=== PATIENT | male | born 1955 | race Two or more races ===

== ENCOUNTER 2022-08-19 11:06 | Inpatient (IN) | payer MEDICARE, MEDICAID ==
[2022-08-19] VITALS (26 sets, daily range): BP systolic 76–104; BP diastolic 38–74
[~2022-08-19] VITALS: Ht 177.8 cm; Wt 96.6 kg
[2022-08-19] MEDS ORDERED: ETOMIDATE (2MG/ML) 20ML VIAL IV ONE ×2 (11:19→11:30)
[2022-08-19] MEDS ORDERED: ROCURONIUM 10MG/ML 10ML VIAL IV ONE ×3 (11:19→14:00)
[2022-08-19] MEDS ORDERED: SUCCINYLCHOLINE CHLORIDE 20 MG/ML 10ML VIAL IV ONE ×2 (11:19→11:30)
[2022-08-19] MEDS: MIDAZOLAM DRIP 50 mg/50mL 50 ML IV SCH ×3 (11:26→19:57)
[2022-08-19] MEDS ORDERED: MIDAZOLAM DRIP 50 mg/50mL 50 ML IV ONE (11:26)
[2022-08-19] MEDS ORDERED: ACETAMINOPHEN 650 MG RECT SUPP PR ONE (11:30)
[2022-08-19 11:45] LABS: Basophils # (auto) 0 10 ^3/uL (0-0.2); Basophils % (auto) 0.1 % (0.0-2.0); Eosinophils # (auto) 0 10 ^3/uL (0-0.8); Eosinophils % (auto) 0.1 % (0.0-7.0); Hematocrit 44.5 % (41.0-53.0); Hemoglobin 14.7 g/dL (13.5-17.5); Lymphocytes # (auto) 1.3 10 ^3/uL (0.4-5.4); Lymphocytes % (auto) 14.3 % (10.0-50.0); Mean Corpuscular Hemoglobin 30.9 pg (28.0-32.0); Mean Corpuscular Hgb Conc. 33.1 g/dL (32.0-36.0); Mean Corpuscular Volume 93.3 fL (80.0-100.0); Monocytes # (auto) 0.6 10 ^3/uL (0-1.3); Monocytes % (auto) 6.9 % (0.0-12.0); Neutrophils # (auto) 7.2 10 ^3/uL (1.6-8.6); Neutrophils % (auto) 78.6 % (37.0-80.0); Red Blood Cells 4.77 10^6/uL (4.5-5.90); Red Cell Distribution Width 14.5 % (11.8-14.3); White Blood Cell 9.1 10^3/uL (4.4-10.8)
[2022-08-19] MEDS ORDERED: IBUPROFEN 100MG/5ML ORAL SUSP 100 MG/5 ML UD GT ONE (11:45)
[2022-08-19 11:52] LABS: Band Neutrophils % (manual) 0; Basophils % (manual) 0 (0.0-2.0); Blast Cells 0; Eosinophils % (manual) 0 (0-7); Metamyelocytes % 0; Myelocytes % 0; Promyelocytes % 0; Reactive Lymphocytes 0
[2022-08-19 12:04] LABS: Lymphocytes % (manual) 16 (10.0-50.0); Monocytes % (manual) 7 (0-12)
[2022-08-19 12:18] LABS: Chloride 114 mmol/L (98-107); Nucleated Red Blood Cells % 0.4 %; Sodium 138 mmol/L (136-145)
[2022-08-19 12:36] LABS: Alanine Aminotransferase 38 U/L (16-61); Albumin 3.7 g/dL (3.4-5.0); Alkaline Phosphatase 60 U/L (45-117); Anion Gap 10 (5-15); Aspartate Aminotransferase 59 U/L (15-37); BUN/Creatinine Ratio 11.2 (10.0-20.0); Bilirubin, Total 0.9 mg/dL (0.2-1.0); Blood Alcohol < 3.0 mg/dL (0-5); Blood Urea Nitrogen 20 mg/dL (7-18); Calcium 8.9 mg/dL (8.5-10.1); Carbon Dioxide 14 mmol/L (21-32); Creatine Kinase IFCC 1600 U/L (39-308); GFR African American 49 mL/min; GFR Non-African American 41 mL/min; Glucose 68 mg/dL (74-106); Total Protein 7.3 g/dL (6.4-8.2)
[2022-08-19 13:08] LABS: Acetaminophen < 2.0 ug/mL (10-30)
[2022-08-19 13:10] LABS: Salicylate 1.8 mg/dL (2.8-20.0)
[2022-08-19 13:11] LABS: Urine Bacteria FEW /hpf (None Seen); Urine Blood 3+ /uL (Negative); Urine Hyaline Cast FEW /lpf (0 - 2); Urine Mucus FEW (None Seen); Urine WBC 6 /hpf (0 - 3)
[2022-08-19 13:23] LABS: Potassium 5.7 mmol/L (3.5-5.1)
[2022-08-19 13:27] LABS: Amphetamine Screen, Urine POSITIVE (NEGATIVE); Barbiturate Scree,Urine NEGATIVE (NEGATIVE); Benzodiazephine Screen, Urine POSITIVE (NEGATIVE); Cannabinoid Screen, Urine POSITIVE (NEGATIVE); Cocaine Screen, Urine NEGATIVE (NEGATIVE)
[2022-08-19 13:36] LABS: Opiate Scree,Urine NEGATIVE (NEGATIVE); Phencyclidine Screen, Urine NEGATIVE (NEGATIVE)
[2022-08-19] MEDS: fentaNYL Drip 2500mCg/250mlNS 250 ML IV SCH (13:53)
[2022-08-19] MEDS ORDERED: SODIUM BICARBONATE 8.4 % INJ 50ML VIAL IV ONE ×3 (14:15→19:03)
[2022-08-19] MEDS ORDERED: DEXTROSE (50%) 50ML SYRG IV ONE ×2 (14:15→15:45)
[2022-08-19] MEDS ORDERED: DEXTROSE 10% 250 ML Bag IV PRN ×2 (14:30)
[2022-08-19] MEDS ORDERED: ALBUTEROL SULF 2.5 MG/0.5ML(0.5%) NEB SOLN NEB ONE (15:45)
[2022-08-19] MEDS ORDERED: CALCIUM GLUC 1,000mg/50ml-NS 50 ML IV ONE (15:45)
[2022-08-19] MEDS ORDERED: InsuLIN REG 1unit/0.01ml Soln (100units/ml) IV ONE (15:45)
[2022-08-19] MEDS ORDERED: SODIUM BICARBONATE 8.4% INJ 50ML SYRINGE IV ONE (15:45)
[2022-08-19] MEDS ORDERED: MORPHINE SULFATE INJ 2 MG/ml SYRG IV PRN (15:45)
[2022-08-19] MEDS ORDERED: NITROGLYCERIN 0.4 MG SL TAB SL PRN (15:45)
[2022-08-19] MEDS ORDERED: FUROSEMIDE 20 MG/2 ML VIAL IV ONE (15:45)
[2022-08-19] MEDS ORDERED: VANCOMYCIN PER PHARMACY 0 MG IV SCH (16:00)
[2022-08-19] MEDS ORDERED: SODIUM CHLORIDE 0.9% 1,000 ML IV ONE (16:00)
[2022-08-19] MEDS ORDERED: PANTOPRAZOLE 40 MG/10 ML VIAL INJ IV ONE (16:00)
[2022-08-19] MEDS ORDERED: VANCOMYCIN 1GM/250ML 250 ML IV ONE (16:00)
[2022-08-19 16:20] LABS: Cholesterol 116 mg/dL (< 200); Triglycerides 53 mg/dL (< 150)
[2022-08-19 16:22] LABS: HDL Cholesterol 50 mg/dL (40-59); LDL Cholesterol 57 mg/dL (< 100); Lactic Acid w/Reflex 3.6 mmol/L (0.4-2.0)
[2022-08-19] MEDS: SODIUM CHLORIDE 0.9% 1,000 ML IV SCH (16:52)
[2022-08-19] MEDS ORDERED: MULTIPLE VITAMIN TAB PO ONE (17:15)
[2022-08-19] MEDS ORDERED: FOLIC ACID 1 MG in D5W 5% 50 ML INJ SCH (17:15)
[2022-08-19] MEDS ORDERED: THIAMINE 100mg/ml INJ (200mg/2ml VIAL) IV ONE (17:15)
[2022-08-19] MEDS ORDERED: LORazepam 2MG/ML-1ML VIAL IV PRN (17:15)
[2022-08-19] MEDS: NOREPINEPHRINE 8 MG/250ML KIT 250 ML IV SCH (17:22)
[2022-08-19] MEDS ORDERED: FOLIC ACID 1 MG in D5W 5% 50 ML INJ ONE (17:30)
[2022-08-19] MEDS: IPRATROPIUM BROM 0.5 MG/2.5ML INH SOL NEB SCH (18:00)
[2022-08-19] MEDS: ALBUTEROL SULF 2.5 MG/0.5ML(0.5%) NEB SOLN NEB SCH (18:00)
[2022-08-19] MEDS ORDERED: SODIUM BICARBONATE 8.4% INJ 50ML SYRINGE ONE (19:01)
[2022-08-19] MEDS ORDERED: SODIUM CHLORIDE 0.9% 2,000 ML IV ONE (19:45)
[2022-08-19] MEDS ORDERED: THIAMINE 100mg/ml INJ (200mg/2ml VIAL) ONE (19:59)
[2022-08-19] MEDS: VANCOMYCIN 1GM/250ML 250 ML IV SCH (20:04)
[2022-08-19 20:34] LABS: Creatinine, Urine 236 mg/dL (30.0-125.0); Sodium Urine 43 mmol/L (40-220)
[2022-08-19] MEDS ORDERED: ALBUMIN 25% 100 ML IV ONE (21:15)
[2022-08-19] MEDS: SODIUM BICARBONATE 50ML VIAL 150 ML in D5W 5% 1,000 ML IV SCH (21:15)
[2022-08-19] MEDS ORDERED: POTASSIUM CHL 20MEQ/100ML 100 ML IV ONE (21:15)
[2022-08-19] MEDS: PHENYLEPHRINE IV 250 ML IV SCH (21:15)
[2022-08-19] MEDS ORDERED: FUROSEMIDE 100 MG/10ML VIAL IV ONE (21:45)
[2022-08-19] MEDS: CEFEPIME 1GM/ 50ML 50 ML IV SCH (22:00)
[2022-08-20] VITALS (105 sets, daily range): BP systolic 79–112; BP diastolic 47–72
[2022-08-20] MEDS: IPRATROPIUM BROM 0.5 MG/2.5ML INH SOL NEB SCH ×4 (00:18→18:42)
[2022-08-20] MEDS: ALBUTEROL SULF 2.5 MG/0.5ML(0.5%) NEB SOLN NEB SCH ×4 (00:18→18:41)
[2022-08-20] MEDS: MIDAZOLAM DRIP 50 mg/50mL 50 ML IV SCH ×5 (00:39→22:29)
[2022-08-20] MEDS: NOREPINEPHRINE 8 MG/250ML KIT 250 ML IV SCH ×2 (00:40→21:40)
[2022-08-20] MEDS: SODIUM CHLORIDE 0.9% 1,000 ML IV SCH ×3 (01:45→21:13)
[2022-08-20] MEDS: SODIUM BICARBONATE 50ML VIAL 150 ML in D5W 5% 1,000 ML IV SCH ×3 (03:25→09:41)
[2022-08-20] MEDS: PHENYLEPHRINE IV 250 ML IV SCH ×3 (04:08→22:38)
[2022-08-20 05:29] LABS: BUN/Creatinine Ratio 13.5 (10.0-20.0)
[2022-08-20 05:31] LABS: Bilirubin, Total 2.4 mg/dL (0.2-1.0); Total Protein 5.7 g/dL (6.4-8.2)
[2022-08-20 06:26] LABS: Basophils # (auto) 0 10 ^3/uL (0-0.2); Eosinophils # (auto) 0 10 ^3/uL (0-0.8); Nucleated Red Blood Cells % 0.9 %; Red Cell Distribution Width 15.3 % (11.8-14.3)
[2022-08-20 06:27] LABS: Basophils % (auto) 0.1 % (0.0-2.0); Hematocrit 41.8 % (41.0-53.0); Hemoglobin 13.7 g/dL (13.5-17.5); Lymphocytes # (auto) 1.9 10 ^3/uL (0.4-5.4); Lymphocytes % (auto) 12.7 % (10.0-50.0); Mean Corpuscular Hemoglobin 31.6 pg (28.0-32.0); Mean Corpuscular Hgb Conc. 32.8 g/dL (32.0-36.0); Mean Corpuscular Volume 96.2 fL (80.0-100.0); Monocytes # (auto) 0.8 10 ^3/uL (0-1.3); Monocytes % (auto) 5.4 % (0.0-12.0); Neutrophils % (auto) 81.8 % (37.0-80.0); Red Blood Cells 4.34 10^6/uL (4.5-5.90); White Blood Cell 14.6 10^3/uL (4.4-10.8)
[2022-08-20] MEDS: PANTOPRAZOLE 40 MG/10 ML VIAL INJ IV SCH (09:39)
[2022-08-20] MEDS: ENOXAPARIN SOD 40 MG/0.4 ML SYRINGE SC SCH (09:39)
[2022-08-20] MEDS: FOLIC ACID 1 MG, MULTIPLE VITAMIN 10 ML, THIAMINE INJ 100 MG in D5W 5% 1,000 ML INJ SCH (09:42)
[2022-08-20] MEDS: CEFEPIME 1GM/ 50ML 50 ML IV SCH ×2 (09:42→22:05)
[2022-08-20] MEDS ORDERED: MULTIPLE VITAMIN TAB PO SCH (10:00)
[2022-08-20] MEDS ORDERED: THIAMINE 100mg/ml INJ (200mg/2ml VIAL) IV SCH (10:00)
[2022-08-20] MEDS: fentaNYL Drip 2500mCg/250mlNS 250 ML IV SCH (15:11)
[2022-08-20 15:28] LABS: INR 5.21 (0.9-1.15); Partial Thromboplastin Time 104.1 sec (24.6-33.4)
[2022-08-20] MEDS: POTASSIUM CHL 20MEQ/100ML 100 ML IV SCH ×2 (15:33→18:37)
[2022-08-20] MEDS ORDERED: PROPOFOL 100 ML IV ONE (16:18)
[2022-08-20] MEDS: PROPOFOL 100 ML IV SCH ×2 (16:43→23:41)
[2022-08-20 17:18] LABS: BUN/Creatinine Ratio 11.2 (10.0-20.0); Calcium 6.3 mg/dL (8.5-10.1)
[2022-08-20 17:28] LABS: Potassium 2.9 mmol/L (3.5-5.1)
[2022-08-20] MEDS: VANCOMYCIN 1GM/250ML 250 ML IV SCH (18:38)
[2022-08-21] VITALS (65 sets, daily range): BP systolic 57–95; BP diastolic 35–56
[2022-08-21] MEDS: ALBUTEROL SULF 2.5 MG/0.5ML(0.5%) NEB SOLN NEB SCH ×3 (00:32→11:53)
[2022-08-21] MEDS: IPRATROPIUM BROM 0.5 MG/2.5ML INH SOL NEB SCH ×3 (00:32→11:53)
[2022-08-21] MEDS ORDERED: ALBUMIN 5% 500 ML IV ONE (01:00)
[2022-08-21] MEDS: PHENYLEPHRINE IV 250 ML IV SCH ×3 (01:05→05:15)
[2022-08-21] MEDS: MIDAZOLAM DRIP 50 mg/50mL 50 ML IV SCH (01:34)
[2022-08-21] MEDS: NOREPINEPHRINE 8 MG/250ML KIT 250 ML IV SCH ×2 (01:40→06:24)
[2022-08-21] MEDS: SODIUM CHLORIDE 0.9% 1,000 ML IV SCH ×3 (02:46→14:46)
[2022-08-21] MEDS ORDERED: NOREPINEPHRINE BITARTRATE 32 MG in SODIUM CHL 0.9% 218 ML IV SCH (07:30)
[2022-08-21] MEDS: PHENYLEPHRINE INJ 80 MG in SODIUM CHL 0.9% 242 ML IV SCH ×2 (07:30→15:56)
[2022-08-21] MEDS ORDERED: VASOPRESSIN 20 UNIT/ML ONE (07:56)
[2022-08-21] MEDS: VASOPRESSIN 20 UNITS in SODIUM CHL 0.9% 99 ML IV SCH ×2 (08:16→15:57)
[2022-08-21] MEDS ORDERED: SODIUM BICARBONATE 8.4 % INJ 50ML VIAL IV ONE ×2 (08:24→08:30)
[2022-08-21] MEDS ORDERED: SODIUM BICARBONATE 50ML VIAL 150 ML in D5W 5% 1,000 ML IV SCH (08:30)
[2022-08-21 09:35] LABS: Basophils # (auto) 0 10 ^3/uL (0-0.2); Eosinophils # (auto) 0 10 ^3/uL (0-0.8); Lymphocytes # (auto) 0.7 10 ^3/uL (0.4-5.4); Monocytes # (auto) 0.1 10 ^3/uL (0-1.3); Neutrophils % (auto) 94.3 % (37.0-80.0); White Blood Cell 14.4 10^3/uL (4.4-10.8)
[2022-08-21 09:36] LABS: Basophils % (auto) 0.2 % (0.0-2.0); Hematocrit 35.6 % (41.0-53.0); Hemoglobin 11.5 g/dL (13.5-17.5); Lymphocytes % (auto) 4.8 % (10.0-50.0); Mean Corpuscular Hgb Conc. 32.3 g/dL (32.0-36.0); Mean Corpuscular Volume 95.9 fL (80.0-100.0); Monocytes % (auto) 0.7 % (0.0-12.0); Neutrophils # (auto) 13.5 10 ^3/uL (1.6-8.6); Nucleated Red Blood Cells % 0.8 %; Red Blood Cells 3.72 10^6/uL (4.5-5.90); Red Cell Distribution Width 15.8 % (11.8-14.3)
[2022-08-21 09:38] LABS: BUN/Creatinine Ratio 8.4 (10.0-20.0)
[2022-08-21] MEDS ORDERED: DEXTROSE 10% 250 ML IV ONE ×2 (09:41→09:46)
[2022-08-21 09:42] LABS: Potassium 5.6 mmol/L (3.5-5.1)
[2022-08-21] MEDS ORDERED: EPINEPHrine HCL 250 ML IV ONE (09:55)
[2022-08-21] MEDS ORDERED: DOPamine 1600MCG/ML D5W 250 ML IV SCH (10:00)
[2022-08-21] MEDS ORDERED: EPINEPHrine HCL 250 ML IV SCH (10:00)
[2022-08-21] MEDS: PANTOPRAZOLE 40 MG/10 ML VIAL INJ IV SCH (10:00)
[2022-08-21] MEDS: ENOXAPARIN SOD 40 MG/0.4 ML SYRINGE SC SCH (10:00)
[2022-08-21 10:44] LABS: Calcium 5.7 mg/dL (8.5-10.1)
[2022-08-21] MEDS: fentaNYL Drip 2500mCg/250mlNS 250 ML IV SCH (13:45)
[2022-08-21] MEDS: FOLIC ACID 1 MG, MULTIPLE VITAMIN 10 ML, THIAMINE INJ 100 MG in D5W 5% 1,000 ML INJ SCH (14:45)
[2022-08-21] MEDS ORDERED: EPINEPHrine HCL 1 MG/10 ML SYRG IV ONE (20:13)
[2022-08-21] MEDS ORDERED: SODIUM BICARBONATE 8.4% INJ 50ML SYRINGE IV ONE (20:13)
[2022-08-21] MEDS ORDERED: ATROPINE SULF 1 MG/10ml SYR IM ONE (20:13)
[2022-08-21] MEDS ORDERED: CEFEPIME 1GM/ 50ML 50 ML IV SCH (22:00)
[2022-08-22] MEDS ORDERED: ENOXAPARIN SOD 30 MG/0.3 ML SYRINGE SC SCH (10:00)
== END 2022-08-22 00:40 | DRG 720 ==
LOC: EDBD 11:06 → ER 11:06 → TELE 15:46 → ICU WEST 17:26
PROVIDERS: ADMIT Nurse Practitioner Family; ATTEND Internal Medicine Pulmonary Disease
PROC: 5A1945Z Respiratory Ventilation, 24-96 Consecutive Hours (ICD-10-PCS; 2022-08-19)
PROC: 0BH17EZ Insertion of Endotracheal Airway into Trachea, Via Natural or Artificial Opening (ICD-10-PCS; 2022-08-19)
PROC: 4A00X4Z Measurement of Central Nervous Electrical Activity, External Approach (ICD-10-PCS; principal; 2022-08-20)
DX: A41.9 Sepsis, unspecified organism (principal); J96.01 Acute respiratory failure with hypoxia; N17.0 Acute kidney failure with tubular necrosis; R65.21 Severe sepsis with septic shock; G93.41 Metabolic encephalopathy; J18.9 Pneumonia, unspecified organism; I12.0 Hypertensive chronic kidney disease with stage 5 chronic kidney disease or end stage renal disease; D69.6 Thrombocytopenia, unspecified; K76.82 Hepatic encephalopathy; G93.1 Anoxic brain damage, not elsewhere classified; J44.0 Chronic obstructive pulmonary disease with (acute) lower respiratory infection; M62.82 Rhabdomyolysis; N18.6 End stage renal disease; E11.22 Type 2 diabetes mellitus with diabetic chronic kidney disease; E66.9 Obesity, unspecified; E07.9 Disorder of thyroid, unspecified; E78.5 Hyperlipidemia, unspecified; E87.70 Fluid overload, unspecified; F15.10 Other stimulant abuse, uncomplicated; F41.9 Anxiety disorder, unspecified; E87.5 Hyperkalemia; Z68.30 Body mass index [BMI] 30.0-30.9, adult; Z79.899 Other long term (current) drug therapy
CPT/HCPCS: 31500; 36415; 36556; 36600; 70450; 71045; 80048; 80053; 80061; 80307; 80320; 80329; 81001; 82550; 82570; 82805; 82962; 83036; 83605; 84132; 84300; 84443; 85025; 85610; 85730; 87040; 87070; 87081; 87205; 93005; 93306; 94002; 94003; 94640; 95819; 96361; 96365; 96375; 99152; 99153; 99291; 99292; C9113; G0378; J0171; J0330; J1815; J2250; J2704; J3480; J7060; P9047